=== PATIENT | female | born 1945 | race Caucasian/White ===

== ENCOUNTER → 2020-03-15 | Outpatient (CLI) | payer OTHER ==
[~2020-03-15] MED LIST: LEVOXYL88 MCG PO; VITAMIN B122500 MCG PO; WIXELA 250-501 EACH INH
[2020-03-15 10:55] LABS: APTT 26.6 Seconds (25.0-31.3); PROTIME 10.5 Seconds (9.20-11.50)
[2020-03-15 10:56] LABS: ABSOLUTE EOSINOPHILS 0.5 thou/uL (0.0-0.7); ABSOLUTE LYMPHOCYTES 1.6 thou/uL (0.8-5.3); ABSOLUTE MONOCYTES 0.4 thou/uL (0.0-1.2); ABSOLUTE NEUTROPHILS 3.3 thou/uL (1.6-8.1); BASOPHILS 0.8 %; EOSINOPHILS 8.4 %; HEMATOCRIT 41.1 % (37.0-47.0); HEMOGLOBIN 14.4 gm/dL (12.0-15.0); LYMPHOCYTES 27.6 %; MCH 33.9 pg (26.0-34.0); MCHC 35.1 g/dL (28.0-37.0); MCV 96.6 fL (80.0-100.0); MONOCYTES 6.7 %; MPV 8.2 fl. (7.2-11.1); NUCLEATED RBCS 0 /100WBC; PLATELET COUNT* 243 thou/uL (150-400); POLYS 56.5 %; RBC 4.26 mil/uL (4.20-5.00); RDW-CV 12.9 % (10.5-14.5); WBC 5.8 thou/uL (4.0-11.0)
[2020-03-15 11:13] LABS: CALCIUM 8.5 mg/dL (8.5-10.1); CREATININE 0.8 mg/dL (0.6-1.3); POTASSIUM 4.1 mmol/L (3.5-5.1); TOTAL BILIRUBIN 0.6 mg/dL (<0.1-1.0); TOTAL PROTEIN 7.1 g/dL (6.4-8.2)
[2020-03-15 11:55] LABS: ESR (SEDRATE) 15 mm/hr (0-30)
--- NOTE | 2020-03-15 15:29 | EKG ---
[place] [address] ELECTROCARDIOGRAM REPORT Name: CARTERTHEO Room: [facility]#: [id number] Admission: 03/15/20 Attend Phys: Vincent Huff DO Discharge: Date of : 41 Date of Service: 03/15/20 1031 Report #: [id number] THIS REPORT FOR: //name// [facility] Test Date: 2020-03-15 Test Time: 10:31:47 Pat Name: THEO MACHADO Department: Room: Gender: [employer]: : 1945 Requested By: Vincent Huff Order Number: [id number] Reading MD: Devan Garcia Measurements Intervals [place] Rate: 63 P: 69 SC: 155 QRS: 56 QRSD: 106 T: 51 QT: 407 QTc: 417 Interpretive Statements Sinus rhythm Baseline wander in lead(s) II,III,aVF No previous ECG available for comparison Electronically Signed On 03-15-2020 15:29:21 CDT by Devan Garcia [email or web address] <ELECTRONICALLY SIGNED> By: Devan Garcia MD, [facility] 03/15/20 1529 103 30 Devan Garcia MD, FAC /EPI
[2020-03-16 02:06] LABS: GLYCOHEMOGLOBIN (HGB A1C) 5.2 % (4.8-5.6)
== END ==
LOC: M.LAB 09:27
PROVIDERS: ATTEND Orthopaedic Surgery
DX: Z01.812 Encounter for preprocedural laboratory examination (principal); Z20.828 Contact with and (suspected) exposure to other viral communicable diseases; M17.11 Unilateral primary osteoarthritis, right knee; I49.9 Cardiac arrhythmia, unspecified

== ENCOUNTER 2020-03-21 08:57 | Inpatient (IN) | payer OTHER ==
[~2020-03-21] VITALS: Ht 154.9 cm; Wt 93.0 kg
[2020-03-21 10:30] VITALS: BP 137/102
[2020-03-21 18:17] VITALS: BP 120/52
[2020-03-21 21:20] VITALS: BP 139/47
[2020-03-21 23:21] VITALS: BP 112/50
[2020-03-22 04:00] VITALS: BP 116/51
[2020-03-22 04:41] LABS: HEMATOCRIT 36.1 % (37.0-47.0); HEMOGLOBIN 12.6 gm/dL (12.0-15.0)
[2020-03-22 08:00] VITALS: BP 143/69
[2020-03-22] MEDS ORDERED: ELIQUIS5 MG PO (09:14)
[2020-03-22] MEDS ORDERED: OXYCODONE HCL 55 MG PO (09:14)
[2020-03-22 11:30] VITALS: BP 110/67
[2020-03-22 15:30] VITALS: BP 111/34
[2020-03-22 19:25] VITALS: BP 120/42
[2020-03-22 23:10] VITALS: BP 118/48
[2020-03-23 03:54] VITALS: BP 124/58
[2020-03-23 04:48] LABS: HEMATOCRIT 33.2 % (37.0-47.0); HEMOGLOBIN 11.9 gm/dL (12.0-15.0)
[2020-03-23 08:10] VITALS: BP 152/6; BP 152/67
[2020-03-23 11:54] VITALS: BP 152/6
[2020-03-23] MEDS ORDERED: TRAMADOL 50 MG50 MG PO (13:05)
[2020-03-23] MEDS ORDERED: OXYCODONE HCL 55 MG PO (13:06)
[2020-03-23] MEDS ORDERED: ASPIR-TRIN325 MG PO (13:09)
[2020-03-23 15:54] VITALS: BP 135/38
[2020-03-23 19:24] VITALS: BP 133/48
[2020-03-24 07:40] VITALS: BP 135/54
[2020-03-24 12:16] VITALS: BP 152/6
[2020-03-24 12:42] VITALS: BP 152/6
--- NOTE | 2020-03-28 14:08 | OP ---
[address] [address] OPERATIVE REPORT Name: THEO MACHADO Room: [address]#: [id number] Admission: 03/23/20 Attend Phys: Pollo Wick Discharge: 03/24/20 Date of : 41 Report #: [id number] THIS REPORT FOR: //name// cc: KELLY CASTANEDA RN CUSTOMER CARE COORDINATOR KELLY CASTANEDA RN CUSTOMER CARE COORDINATOR ~ CC: KELLY Dinh DICTATED BY: Mohit Olea DO DATE OF SERVICE: 03/21/2020 PREOPERATIVE DIAGNOSIS: Right knee degenerative joint disease. POSTOPERATIVE DIAGNOSIS: Right knee degenerative joint disease. PROCEDURE: Right total knee arthroplasty. SURGEON: Vincent Huff DO ASSISTANTS: 1. Mohit Olea DO 2. Jose D Bennett DO 3. Jacinta Garcia PA-C. ANESTHESIA: General and regional block by Anesthesia. FLUIDS: Crystalloid per Anesthesia. ESTIMATED BLOOD LOSS: 125 mL DRAINS: None. SPECIMENS: None. COMPLICATIONS: None. CONDITION: Stable to PACU. DISPOSITION: Recovery in PACU and transferred to the floor. ANTIBIOTICS: 2 grams Ancef IV preop. TOURNIQUET TIME: Approximately 50 minutes at [address] [address] OPERATIVE REPORT Name: THEO MACHADO Room: [address]#: [id number] Admission: 03/23/20 Attend Phys: Pollo Wick Discharge: 03/24/20 Date of : 41 Report #: [id number] IMPLANTS: Biomet Vanguard total knee system with the following components: 1. A 65 CR femur. 2. A 71 tibia. 3. A 12 mm Vivacit anterior stabilized poly. 4. A 34 mm asymmetric patella. 5. One bag of Biomet cement. INDICATIONS: The patient is a very pleasant 74-year-old female. She had longstanding right knee pain, which failed conservative measures. X-rays identified severe degenerative joint disease. We discussed total knee arthroplasty. The risks, benefits, alternatives and possible complications were discussed at length including but not limited to infection, continued or worsening pain, nerve injury, vascular injury, stiffness, need for repeat surgery, periprosthetic fracture, DVT, PE, , rhabdomyolysis and others. These were discussed. She expressed her understanding and was agreeable to proceed. INTRAOPERATIVE FINDINGS: Upon evaluation of the knee, there was found to be tricompartmental degenerative changes with marginal osteophytes, hypertrophic synovium tissue and a normal-appearing synovial fluid. DESCRIPTION OF PROCEDURE: The patient was met in the preoperative area. The correct site was marked. Consent was obtained both verbally and written. She was transferred to the OR table and placed supine on the table. All bony prominences were well padded. She was given the benefit of general anesthesia. A well-padded tourniquet was applied to the upper thigh. The leg was then prepped and draped in normal sterile fashion. A timeout was performed to identify the correct patient, procedure and operative site. All in the room were in agreement. The leg was then exsanguinated by gravity and the tourniquet elevated. The procedure began with a midline incision anteriorly. Sharp dissection was carried down to the level of the capsule. A medial parapatellar arthrotomy was then performed exposing the knee joint. The patella was then everted and the knee hyperflexed. A medial sleeve was developed sharply. The fat pad was debrided. The femoral canal was then reamed in the usual fashion. The intramedullary femoral guide was inserted. The distal femoral cut was made in the usual fashion. The extramedullary tibial guide was then placed and 10 mm was measured off the high lateral side. This was centered down the tibial crest and center of the talus and second metatarsal. The proximal tibial cut block was pinned in place and the subsequent cut was made. A 10 block was inserted and found to have a good ligamentous balance. The knee was then brought back to flexion. A 4-in-1 sizer was placed. This was measured to be 65. The 4-in-1 cut block was impacted and pinned into place. The anterior, posterior and chamfer cuts were then made in the usual fashion. Residual bone was removed. The menisci were excised in the usual fashion. The ACL was removed. Trial components were placed with the appropriate amount of rotation. The patella was then prepared for resurfacing using the patellar reamer. This was sized to a [address] [facility] [address] [place] [address] OPERATIVE REPORT Name: CARTERTHEO Room: [address] IN [facility]#: [id number] Admission: 03/23/20 Attend Phys: Pollo Wick Discharge: 03/24/20 Date of : 41 Report #: [id number] and the drill holes for the patellar pegs were drilled. The trial patella was placed. This tracked well with full extension of the knee. It was stable with varus and valgus stress. There was no mid flexion or flexion instability. The trial patella and femur were then removed. We then reamed and punched through the tibial trial. The trial components were then removed. A 60 mL of pain cocktail was injected about the joint. The bony ends were then thoroughly irrigated with pulse lavage. Cement was mixed on the back table and placed on the backside of the final components. Final components were then malleted into place. Excess cement was removed. The final polyethylene spacer was inserted. This was taken through range of motion and was found to have full extension, good flexion and no instability. The knee was placed in 90 degrees of flexion. One gram of powdered vancomycin was placed into the knee joint. The capsule was then closed with #1 Vicryl in mnskvd-ip-roacd fashion followed by a running #1 Stratafix. The subcutaneous tissues were reapproximated with 2-0 Monocryl in simple interrupted inverted fashion followed by a 3-0 Stratafix on the skin. Exofin glue was then placed. Needle and sponge counts were correct x 2 at the end of the case. A Mepilex dressing was applied. The patient was extubated and transferred to the PACU in stable condition. There were no complications. I attest Dr. Huff was present and scrubbed throughout all critical aspects of the case. POSTOPERATIVE PLAN: The patient received 2 grams of Ancef just prior to the procedure and will receive 2 additional doses postoperatively, not to exceed 23 hours from the completion of surgery. I will start her on Eliquis for DVT prophylaxis 2.5 mg b.i.d. for 14 days, followed by aspirin for 4 additional weeks. She also had pneumatic foot pumps and thigh high JENNIFER hose. <ELECTRONICALLY SIGNED> By: Vincent Huff DO 03/28/20 1408 [id number] [id number] Huff DO /nt
== END 2020-03-24 13:17 | disposition home health service (06) | DRG 470 ==
LOC: M.TBA 08:57 → M.ORTHSURG 08:57 → M.PRE 09:30 → M.TBA 13:21 → M.ORTHSURG 13:21
PROVIDERS: Orthopaedic Surgery; ADMIT Internal Medicine; ATTEND Internal Medicine
PROC: 0SRC0J9 Replacement of Right Knee Joint with Synthetic Substitute, Cemented, Open Approach (ICD-10-PCS; principal; 2020-03-21)
DX: M17.11 Unilateral primary osteoarthritis, right knee (principal); D62 Acute posthemorrhagic anemia; E03.9 Hypothyroidism, unspecified; Z88.0 Allergy status to penicillin; Z88.8 Allergy status to other drugs, medicaments and biological substances; Z90.710 Acquired absence of both cervix and uterus; Z90.49 Acquired absence of other specified parts of digestive tract; Z98.42 Cataract extraction status, left eye; Z98.41 Cataract extraction status, right eye; Z79.899 Other long term (current) drug therapy

== ENCOUNTER 2020-05-09 09:27 | Observation (INO) | payer OTHER ==
[~2020-05-09] VITALS: Ht 154.9 cm; Wt 88.5 kg
[~2020-05-09 09:27] MED LIST changes: +ASPIR-TRIN325 MG PO; +ELIQUIS5 MG PO; +NEURONTIN 300M300 M2 PO; +OXYCODONE HCL 55 MG PO; +TRAMADOL 50 MG50 MG PO
[2020-05-09 10:22] LABS: ABSOLUTE BASOPHILS 0.1 thou/uL (0.0-0.2); ABSOLUTE EOSINOPHILS 0.4 thou/uL (0.0-0.7); ABSOLUTE LYMPHOCYTES 1.5 thou/uL (0.8-5.3); ABSOLUTE MONOCYTES 0.4 thou/uL (0.0-1.2); ABSOLUTE NEUTROPHILS 3.4 thou/uL (1.6-8.1); BASOPHILS 1.3 %; EOSINOPHILS 6.2 %; HEMATOCRIT 40.3 % (37.0-47.0); HEMOGLOBIN 13.9 gm/dL (12.0-15.0); LYMPHOCYTES 26.6 %; MCH 33.1 pg (26.0-34.0); MCHC 34.4 g/dL (28.0-37.0); MCV 96.1 fL (80.0-100.0); MPV 7.8 fl. (7.2-11.1); NUCLEATED RBCS 0 /100WBC; PLATELET COUNT* 303 thou/uL (150-400); POLYS 58.9 %; RBC 4.19 mil/uL (4.20-5.00); RDW-CV 13.1 % (10.5-14.5); WBC 5.8 thou/uL (4.0-11.0)
[2020-05-09 10:29] LABS: CALCIUM 8.8 mg/dL (8.5-10.1); CREATININE 0.8 mg/dL (0.6-1.3); POTASSIUM 4.8 mmol/L (3.5-5.1)
[2020-05-09 10:32] LABS: APTT 27.3 Seconds (25.0-31.3); PROTIME 10.9 Seconds (9.20-11.50)
[2020-05-09 10:34] LABS: ALBUMIN 3.8 g/dL (3.4-5.0); TOTAL BILIRUBIN 0.8 mg/dL (<0.1-1.0); TOTAL PROTEIN 7.5 g/dL (6.4-8.2)
[2020-05-09 11:29] LABS: ESR (SEDRATE) 32 mm/hr (0-30)
[2020-05-09 15:54] VITALS: BP 132/60
[2020-05-09 20:56] VITALS: BP 126/62
[2020-05-10 00:32] VITALS: BP 118/59
[2020-05-10 04:39] LABS: HEMATOCRIT 33.4 % (37.0-47.0)
[2020-05-10 04:49] LABS: HEMOGLOBIN 11.3 gm/dL (12.0-15.0)
[2020-05-10 07:40] VITALS: BP 118/59
[2020-05-10] MEDS ORDERED: ELIQUIS5 MG PO (09:33)
[2020-05-10] MEDS ORDERED: TRAMADOL 50 MG50 MG PO (09:33)
[2020-05-10] MEDS ORDERED: HYDROCODON-ACE1 EAC7 PO (09:33)
[2020-05-10 09:34] VITALS: BP 118/59
[2020-05-10 12:00] VITALS: BP 120/42
[2020-05-10 14:15] VITALS: BP 118/59
--- NOTE | 2020-05-12 18:17 | OP ---
[address] [address] OPERATIVE REPORT Name: THEO MACHADO Room: [address] Bryan Hilario#: [id number] Admission: 05/09/20 Attend Phys: Pollo Wick Discharge: 05/10/20 Date of : 41 Report #: [id number] THIS REPORT FOR: //name// cc: KELLY CASTANEDA RN SOURCING COORDINATOR KELLY CASTANEDA RN SOURCING COORDINATOR ~ CC: KELLY Dinh DATE OF SERVICE: 05/09/2020 ADDENDUM/CORRECTION Kashif Wakefield DO dictating for Dr. Vincent Huff. PREOPERATIVE DIAGNOSIS: Status post a right total knee arthroplasty. POSTOPERATIVE DIAGNOSIS: Status post a right total knee arthroplasty. PROCEDURE PERFORMED: 2. Right knee examination under anesthesia, EUA. Anywhere in the body where I said ALONDRA, can we just call it an EUA and exam under anesthesia. <ELECTRONICALLY SIGNED> By: Vincent Huff DO 05/12/20 1817 1451 1705Vincent Huff DO /nt
--- NOTE | 2020-05-12 18:17 | OP ---
[address] [address] OPERATIVE REPORT Name: THEO MACHADO Room: [address] Yan[place]is#: [id number] Admission: 05/09/20 Attend Phys: Pollo Wick Discharge: 05/10/20 Date of : 41 Report #: [id number] THIS REPORT FOR: //name// cc: KELLY CASTANEDA RN LINEN FOLDER KELLY CASTANEDA RN LINEN FOLDER ~ CC: KELLY Dinh DATE OF SERVICE: 05/09/2020 Kashif Wakefield DO dictating for Dr. Vincent Huff. PREOPERATIVE DIAGNOSES: 1. Left knee degenerative joint disease. 2. Status post a right total knee arthroplasty. POSTOPERATIVE DIAGNOSES: 1. Left knee degenerative joint disease. 2. Status post a right total knee arthroplasty. OPERATION PERFORMED: 1. Left total knee arthroplasty. 2. Right knee examination under anesthesia. SURGEON: Vincent Huff DO SECOND LANDSCAPE SPECIALIST: Kashif Wakefield DO ANESTHESIA: General and regional nerve block by Anesthesia and local. FLUIDS: Crystalloids. ESTIMATED BLOOD LOSS: 125 mL. DRAINS: None. SPECIMENS: None. COMPLICATIONS: None. CONDITION: The patient is stable. DISPOSITION: PACU, then Med/Surg floor. ANTIBIOTICS: 2 grams Ancef IV piggyback prior to procedure. [address] [place] [address] OPERATIVE REPORT Name: THEO MACHADO [address] [id number] Admission: 05/09/20 Attend Phys: Pollo Wick Discharge: 05/10/20 Date of : 41 Report #: [id number] TOURNIQUET TIME: Was 44 minutes at 300 mmHg. FINDINGS: Surgical evaluation of the knee demonstrated eburnated bone ends with osteophytic lipping in all 3 compartments of the knee. Synovial fluid appeared normal. There was also some hypertrophic synovitis noted. ORTHOPEDIC IMPLANTS: Left total knee arthroplasty utilizing the Biomet Vanguard system with the following components: A. Size 65 mm CR femur was cemented. B. Size 67 mm fixed cruciate tibial plate with locking bar, cemented. C. A 12 mm anterior stabilized polyethylene liner. D. A 31 mm asymmetrical 3 peg patella. E. One bag of Biomet bone cement. INDICATION FOR PROCEDURE: The patient is a very pleasant 74-year-old female who had previously undergone a right total knee arthroplasty a couple of months prior. She was doing well and she wants to undergo her left total knee arthroplasty. She was informed of all the risks, benefits, indications, and complications associated with knee arthroplasty surgery including but not limited to infection, wound healing complications, neurovascular injury, need for antibiotics, need for repeat surgery, continued pain, fracture, DVT, PE, end-organ damage, rhabdomyolysis, complications with anesthesia, even and other possibilities. She understands these and wants to proceed with a knee arthroplasty today. Also, in regards to the right knee arthrofibrosis, she was informed of the risks, benefits, complications associated with examination under anesthesia, understanding that this can fracture or soft tissue injury. Hence, she understands and wants to proceed with EUA as well. Consent was signed prior to the surgery. DESCRIPTION OF PROCEDURE: I met with the patient in the preoperative suite. The correct left knee was marked for the total knee arthroplasty and the right knee was marked for the examination under anesthesia. The patient was taken to the operating room and placed supine on a well-padded table. She was given the benefit of general anesthetic. Prior to the case, she was given regional nerve block by Anesthesia as well on the left side. At this point, a surgical timeout was completed, indicating the correct patient, operative site and procedure performed and all in the room were in agreement and we elected to proceed. With the patient asleep under anesthesia, the right knee underwent examination and was able to obtain full range of motion. The patient was able to obtain range of motion from 0-125 degrees of flexion. A full range of motion present. Then, at this point, the left lower extremity was sterilely prepped and draped in the standard fashion for knee arthroplasty. Marked out the standard midline incision. Skin was incised with a 20-blade scalpel. Dissection was taken down to the level of the capsule and quad tendon. A standard medial parapatellar arthrotomy was performed. Medial and lateral periosteal sleeve was developed. The patella was then everted and the knee [place] [address] OPERATIVE REPORT Name: CARTERTHEO Room: [address] Bryan Hilario#: [id number] Admission: 05/09/20 Attend Phys: Pollo Wick Discharge: 05/10/20 Date of : 41 Report #: [id number] Hoffa's fat pad and anterior menisci were then excised. Excised the ACL and PCL as well. Intramedullary drill was then inserted. Followed by intramedullary alignment guide. A standard distal femur resection cut was performed at 6 degrees of valgus and 9 mm resection. Next, we turned our attention to the proximal tibia. At this point, the extramedullary tibial guide was positioned and pinned into place with the correct amount of slope as well as down the medial third of the tibial tubercle and the tibial crest to the second ray. It was measured from 10 mm off the high lateral side and then raised up 2 mm. Cut was performed. Excess bone was removed with rongeur. Knee was brought into extension and 10 mm spacer block fit nicely with symmetrical varus and valgus stress. Knee was brought back into flexion. AP sizer was utilized. At this point, the size 65 mm femur was found to be appropriate. A 4-in-1 cutting guide was then pinned into position and the anterior, posterior and chamfer cuts were then performed. Excess bone was removed with rongeur. At this time, the trial tibia was placed followed by the trial femur. Trial Polyethylene was then inserted and the knee was brought through range of motion with the 10 mm poly and it was found to be stable with adequate rotation. We turned our attention to the patella. It was denervated with electrocautery. It was cut in a freehand fashion. The patella was then sized and 3 peg holes were drilled and the patella was found to track nicely. The femur drill holes were then placed. The tibial reamer and cruciform punch were utilized. We removed all the trial components. Orthopedic cocktail was injected into the posterior capsule and throughout the knee soft tissue, thoroughly irrigated the bone ends with the Pulsavac. At this point, the final components were thrown on the back table and began the cementing process. Cemented in the standard fashion with the tibia first, followed by the femur and lastly the patella. At this point, trialed a 12 mm polyethylene liner with the final components in place and it was found to have full extension, stable varus and valgus stress, as well as stable mid flexion. Therefore, the final 12 mm anterior stabilized poly was thrown and inserted, and the locking pin was inserted with a click. The knee was thoroughly irrigated, brought through range of motion one more time and it was noted to be stable throughout. One gram of vancomycin powder was then placed within the knee joint as well. Tourniquet was let down and there was good hemostasis. Closed the capsule with #1 Vicryl in a [id number]-bk-imqhl fashion followed by a running #1 Quill. The subcutaneous tissue was then irrigated. Subcutaneous tissues closed with 2-0 Monocryl and then a running 3-0 Stratafix for skin, followed by Dermabond glue. Mepilex dressing was placed. Needle and sponge counts were correct x 2 at the end of procedure. The patient tolerated the procedure well and was transferred to PACU in a stable condition. ATTESTATION: Dr. Vincent Huff was present throughout all critical aspects of the case. POSTOPERATIVE CARE: The patient will be given mechanical and chemical DVT prophylaxis. Two more doses of postoperative antibiotics will be given. The patient will work with physical therapy, occupational [place] [address] OPERATIVE REPORT Name: THEO MACHADO Room: [address] Bryan Hilario#: [id number] Admission: 05/09/20 Attend Phys: Pollo Wick Discharge: 05/10/20 Date of : 41 Report #: [id number] management to undergo safe discharge planning. ADDENDUM/CORRECTION Kashif Wakefield DO dictating for Dr. Vincent Huff. PREOPERATIVE DIAGNOSIS: Status post a right total knee arthroplasty. POSTOPERATIVE DIAGNOSIS: Status post a right total knee arthroplasty. PROCEDURE PERFORMED: 2. Right knee examination under anesthesia, EUA. Anywhere in the body where I said ALONDRA, can we just call it an EUA and exam under anesthesia. <ELECTRONICALLY SIGNED> By: Vincent Huff DO 05/12/20 1817 1441 [id number] Huff DO /nt
== END 2020-05-10 14:54 | disposition home or self-care (01) ==
LOC: M.PRE 09:27 → M.3W 09:57 → M.TBA 09:57 → M.PRE 10:59 → M.3W 15:40 → M.PRE 16:11 → M.3W 05-10 14:54
PROVIDERS: Orthopaedic Surgery; ADMIT Internal Medicine; ATTEND Internal Medicine
DX: M17.12 Unilateral primary osteoarthritis, left knee (principal); Z79.899 Other long term (current) drug therapy; Z20.828 Contact with and (suspected) exposure to other viral communicable diseases; Z96.651 Presence of right artificial knee joint